=== PATIENT | female | born 1990 | race Caucasian/White ===

== ENCOUNTER 2021-02-09 21:50 | Observation (INO) | payer MEDICAID ==
[~2021-02-09] VITALS: Ht 157.5 cm; Wt 73.5 kg
[2021-02-09] MEDS ORDERED: ACETAMINOPHEN 325MG TABLET PO NR (23:30)
[2021-02-09] MEDS ORDERED: PREN-176 PO (23:58)
== END 2021-02-10 00:16 | disposition home or self-care (01) ==
LOC: 8 EST LDRP 21:50
PROVIDERS: ADMIT Obstetrics & Gynecology; ATTEND Obstetrics & Gynecology
DX: O26.893 Other specified pregnancy related conditions, third trimester (principal); R10.9 Unspecified abdominal pain; Z3A.38 38 weeks gestation of pregnancy
CPT/HCPCS: 59025; G0378; 99281

== ENCOUNTER 2021-02-12 07:43 | Inpatient (IN) | payer MEDICAID ==
[~2021-02-12] VITALS: Ht 152.4 cm; Wt 73.5 kg
[~2021-02-12 07:43] MED LIST: PREN-176 PO
[2021-02-12] MEDS ORDERED: NALOXONE HCL 0.4 MG/ML 1ML VIAL IV PRN (08:15)
[2021-02-12] MEDS ORDERED: DIPHENHYDRAMINE 50MG/ML VIAL IM PRN (08:15)
[2021-02-12] MEDS ORDERED: CARBOPROST TROMETHAMINE 250 MCG/ML AMPUL IM PRN (08:15)
[2021-02-12] MEDS ORDERED: BUTORPHANOL TARTRATE 2 MG/ML VIAL IV PRN (08:15)
[2021-02-12] MEDS ORDERED: METHYLERGONOVINE MALEATE 0.2 MG/ML IM PRN (08:15)
[2021-02-12] MEDS ORDERED: LIDOCAINE HCL 1% 20ML VIAL (Pyxis) INJ INFIL SCH (08:15)
[2021-02-12] MEDS ORDERED: LACTATED RINGERS 1,000 ML IV SCH (08:15)
[2021-02-12 09:32] LABS: BASOPHILS % 0.1 % (0.0-2.0); EOSINOPHILS % 0.7 % (0.0-5.0); HEMATOCRIT. 37.6 % (36.0-48.0); LYMPHOCYTES % 14.6 % (20.0-50.0); MEAN CORPUSCULAR HEMOGLOBIN 32.8 pg (28.0-32.0); MEAN CORPUSCULAR VOLUME 94.6 fL (81.0-99.0); MEAN PLATELET VOLUME 8.3 fl (7.4-10.4); MONOCYTES % 10.2 % (2.0-8.0); NEUTROPHILS % 74.4 % (40.0-76.0); PLATELET 194 x1000/uL (130-400); RED BLOOD CELL COUNT 3.98 mill/uL (4.2-5.4); RED CELL DISTRIBUTION WIDTH 13.2 % (11.6-14.6)
[2021-02-12 09:34] LABS: CLARITY URINE CLEAR (CLEAR); COLOR URINE YELLOW (YELLOW); KETONES URINE NEGATIVE (NEGATIVE); LEUKOCYTE ESTERASE URINE 2+ (NEGATIVE); NITRITE URINE NEGATIVE (NEGATIVE); OCCULT BLOOD URINE TRACE (NEGATIVE); PH URINE 6.5 (4.5-8.0); PROTEIN URINE NEGATIVE (NEGATIVE)
[2021-02-12 09:42] LABS: PARTIAL THROMBOPLASTIN TIME 27.9 sec (23.4-31.0); PROTHROMBIN TIME 10.3 sec (9.6-11.0)
[2021-02-12 09:47] LABS: *BENZODIAZEPINES SCREEN URINE NEGATIVE (NEGATIVE); *COCAINE SCREEN URINE NEGATIVE (NEGATIVE)
[2021-02-12 09:48] LABS: *AMPHETAMINES SCREEN URINE NEGATIVE (NEGATIVE); *BARBITURATES SCREEN URINE NEGATIVE (NEGATIVE); CANNABINOID URINE SCREEN NEGATIVE (NEGATIVE); METHADONE URINE SCREEN NEGATIVE (NEGATIVE); OPIATES URINE SCREEN NEGATIVE (NEGATIVE); PHENCYCLIDINE URINE SCREEN NEGATIVE (NEGATIVE)
[2021-02-12] MEDS: DEXT 5%/LR + PITOCIN 20UNITS/L 1,000 ML IV SCH (18:45)
[2021-02-12] MEDS: LACTATED RINGERS 1,000 ML IV SCH ×2 (18:49→20:54)
[2021-02-12] MEDS ORDERED: ONDANSETRON HCL 4MG/2ML INJ IV PRN (20:00)
[2021-02-12] MEDS ORDERED: DIPHENHYDRAMINE 50MG/ML VIAL IV PRN (20:00)
[2021-02-12] MEDS ORDERED: ROPIVACAINE HCL/PF EPIDURAL 200 ML EPI SCH (20:00)
[2021-02-12] MEDS ORDERED: METOCLOPRAMIDE HCL 10MG/2ML VIAL IV PRN (20:00)
[2021-02-13] MEDS: LACTATED RINGERS 1,000 ML IV SCH ×3 (03:00→19:28)
[2021-02-13] MEDS ORDERED: ROPIVACAINE HCL/PF EPIDURAL 200 ML EPI ONE (13:26)
[2021-02-13] MEDS: DEXT 5%/LR + PITOCIN 20UNITS/L 1,000 ML IV SCH (17:16)
[2021-02-14] MEDS ORDERED: ROPIVACAINE HCL/PF EPIDURAL 200 ML EPI ONE (00:45)
[2021-02-14] MEDS ORDERED: CARBOPROST TROMETHAMINE 250 MCG/ML AMPUL IM ONE (08:30)
[2021-02-14] MEDS ORDERED: METHYLERGONOVINE MALEATE 0.2 MG/ML IM ONE (08:30)
[2021-02-14] MEDS ORDERED: LIDOCAINE HCL 1% 20ML VIAL (Pyxis) INJ INFIL SCH (08:30)
[2021-02-14] MEDS ORDERED: NALOXONE HCL 0.4 MG/ML 1ML VIAL IM PRN (08:30)
[2021-02-14] MEDS ORDERED: AMPICILLIN 2,000 MG in SODIUM CHLORIDE 0.9% 100 ML IV SCH (08:30)
[2021-02-14] MEDS ORDERED: AMPICILLIN 2GM in NS 100ML 100 ML IV NR (09:00)
[2021-02-14] MEDS: DEXT 5%/LR + PITOCIN 20UNITS/L 1,000 ML IV SCH ×2 (09:43→16:16)
[2021-02-14] MEDS: LACTATED RINGERS 1,000 ML IV SCH (10:20)
[2021-02-14] MEDS ORDERED: AMPICILLIN 1,000 MG in SODIUM CHLORIDE 0.9% 50 ML IV SCH (13:00)
[2021-02-14] MEDS ORDERED: GENTAMICIN 120MG PREMIX 100 ML IV NR (14:30)
[2021-02-14] MEDS ORDERED: BUTORPHANOL TARTRATE 2 MG/ML VIAL IV PRN (15:00)
[2021-02-14] MEDS ORDERED: DIPHENHYDRAMINE 50MG/ML VIAL IV PRN (15:00)
[2021-02-14] MEDS ORDERED: NALOXONE HCL 0.4 MG/ML 1ML VIAL IV PRN (15:00)
[2021-02-14] MEDS ORDERED: HYDROCODONE/ACETAMINOPHEN 5/325MG TABLET PO PRN (15:15)
[2021-02-14] MEDS ORDERED: RHO(D) IMMUNE GLOBULIN 300 MCG/SYR IM PRN (15:15)
[2021-02-14] MEDS ORDERED: DIPHENHYDRAMINE 25MG CAPSULE PO PRN (15:15)
[2021-02-14] MEDS ORDERED: IBUPROFEN 400MG TABLET PO PRN (15:15)
[2021-02-14] MEDS ORDERED: HEMORRHOIDAL SUPP PR PRN (15:15)
[2021-02-14] MEDS ORDERED: BISACODYL 10MG SUPP PR PRN (15:15)
[2021-02-14] MEDS ORDERED: ONDANSETRON HCL 4MG/2ML INJ IV PRN (15:15)
[2021-02-14] MEDS ORDERED: IBUPROFEN 800MG TABLET PO PRN (15:15)
[2021-02-14] MEDS ORDERED: LANOLIN OINT 7GM TUBE TOP PRN (15:15)
[2021-02-14 16:18] LABS: CHLORIDE 110 mEq/L (98-107)
[2021-02-14 17:20] VITALS: BP 101/57
[2021-02-14 19:30] VITALS: BP 99/48
[2021-02-14] MEDS: AMPICILLIN 2,000 MG in SODIUM CHLORIDE 0.9% 100 ML IV SCH (19:36)
[2021-02-14] MEDS: KETOROLAC 30MG/ML VIAL IV SCH (20:37)
[2021-02-14] MEDS: SIMETHICONE 80MG TABLET CHEW PO SCH (20:38)
[2021-02-14] MEDS: MAGNESIUM/ALUMINUM HYDROXIDE/SIMETHICONE 30ML UDC PO SCH (20:39)
[2021-02-15] VITALS: BP 96/44
[2021-02-15] MEDS: DEXT 5%/LR + PITOCIN 20UNITS/L 1,000 ML IV SCH (00:18)
[2021-02-15] MEDS: AMPICILLIN 2,000 MG in SODIUM CHLORIDE 0.9% 100 ML IV SCH ×2 (01:34→07:02)
[2021-02-15] MEDS: KETOROLAC 30MG/ML VIAL IV SCH ×2 (02:36→11:35)
[2021-02-15 04:00] VITALS: BP 98/42
[2021-02-15 06:14] LABS: BASOPHILS % 0.2 % (0.0-2.0); EOSINOPHILS % 0.4 % (0.0-5.0); HEMATOCRIT. 35.5 % (36.0-48.0); HEMOGLOBIN. 12.1 g/dL (12.0-16.0); LYMPHOCYTES % 9.7 % (20.0-50.0); MEAN CORPUSCULAR HEMOGLOBIN 32.7 pg (28.0-32.0); MEAN CORPUSCULAR VOLUME 96.2 fL (81.0-99.0); MONOCYTES % 8.1 % (2.0-8.0); NEUTROPHILS % 81.6 % (40.0-76.0); PLATELET 169 x1000/uL (130-400); RED BLOOD CELL COUNT 3.69 mill/uL (4.2-5.4); RED CELL DISTRIBUTION WIDTH 13.2 % (11.6-14.6)
[2021-02-15 08:00] VITALS: BP 98/55
[2021-02-15] MEDS: FERROUS SULFATE 325MG TABLET PO SCH ×2 (10:31→17:23)
[2021-02-15] MEDS: PRENATAL VIT/FE FUMARATE/FA TABLET PO SCH (10:31)
[2021-02-15] MEDS: SIMETHICONE 80MG TABLET CHEW PO SCH ×3 (10:32→21:03)
[2021-02-15] MEDS: MAGNESIUM/ALUMINUM HYDROXIDE/SIMETHICONE 30ML UDC PO SCH ×2 (11:35→21:02)
[2021-02-15 19:30] VITALS: BP 101/57
[2021-02-16 04:00] VITALS: BP 100/54
[2021-02-16 08:00] VITALS: BP 104/67
[2021-02-16] MEDS: PRENATAL VIT/FE FUMARATE/FA TABLET PO SCH (09:00)
[2021-02-16] MEDS ORDERED: IBUP-2030 PO (09:55)
[2021-02-16] MEDS ORDERED: FERR325T23 PO (09:55)
[2021-02-16] MEDS: MAGNESIUM/ALUMINUM HYDROXIDE/SIMETHICONE 30ML UDC PO SCH (10:22)
[2021-02-16] MEDS: SIMETHICONE 80MG TABLET CHEW PO SCH (10:22)
[2021-02-16] MEDS: FERROUS SULFATE 325MG TABLET PO SCH (10:24)
== END 2021-02-16 15:30 | disposition home or self-care (01) | DRG 540 ==
LOC: 8 EST LDRP 07:43 → 8EST 02-14 17:41
PROVIDERS: ADMIT Obstetrics & Gynecology; ATTEND Obstetrics & Gynecology
PROC: 10D00Z1 Extraction of Products of Conception, Low, Open Approach (ICD-10-PCS; principal; 2021-02-14)
DX: O62.0 Primary inadequate contractions (principal); O99.12 Other diseases of the blood and blood-forming organs and certain disorders involving the immune mechanism complicating childbirth; O34.13 Maternal care for benign tumor of corpus uteri, third trimester; O36.63X0 Maternal care for excessive fetal growth, third trimester, not applicable or unspecified; O62.1 Secondary uterine inertia; D25.9 Leiomyoma of uterus, unspecified; D72.829 Elevated white blood cell count, unspecified; Z37.0 Single live birth; Z3A.39 39 weeks gestation of pregnancy
CPT/HCPCS: 36415; 76805; 76818; 80048; 80305; 81003; 85025; 86592; 86703; 86850; 86900; 87340; 88307; 99281; J0290; J0690; J1580; J1885; J2210; J2250; J2274; J2370; J2405; J2590; J2795; J3010; J3490; J7050; J7120; A4315